=== PATIENT | female | born 1960 | race Caucasian/White ===

== ENCOUNTER → 2019-12-08 10:23 | Outpatient (CLI) | payer OTHER, SELFPAY ==
--- NOTE | ~2019-12-08 | MM_ITS ---
EXAMINATION: MM scrn christopher implant BI w nelia HISTORY: Screening mammogram TECHNIQUE: Craniocaudal and mediolateral oblique 3-D tomosynthesis images with implant displacement a nd synthetic 2-D images were generated. Craniocaudal and mediolateral oblique views of the breasts wi thout implant displacement were obtained using full field digital mammography. CAD analysis was submi tted and interpreted. COMPARISON: 09/16/2018, 09/03/2017, 07/26/2016 BREAST PARENCHYMAL COMPOSITION: The breasts are heterogeneously dense, which may obscure small masses . FINDINGS: There is no evidence of suspicious mass, calcification, or architectural distortion to sugg est malignancy in either breast. There has been no suspicious interval change. IMPRESSION: 1. No mammographic evidence of malignancy. 2. Recommend routine screening mammography in one year. BI-RADS Category 1: Negative Reviewed, dictated and finalized at location A. CAL LAB SPECIALIST
== END ==
PROVIDERS: PCP Family Medicine; Visit Provider Obstetrics & Gynecology
DX: Z12.31 Encounter for screening mammogram for malignant neoplasm of breast (principal)
CPT/HCPCS: 77063; 77067

== ENCOUNTER 2021-09-15 09:24 | Outpatient (CLI) | payer OTHER, SELFPAY ==
--- NOTE | ~2021-09-15 | US_ITS ---
EXAMINATION: US aorta DATE: 09/15/2021 09:54 CLIENT SUPPORT COORDINATOR INDICATION: Family history of abdominal aortic aneurysm TECHNIQUE: Grayscale, color Doppler, and pulsed Doppler images of the aorta and common iliac arteries were obtained. COMPARISON: None. FINDINGS: The proximal aorta measures 2.2 cm greatest sagittal dimension. The mid aorta measures 1.8 cm greates t sagittal dimension. The distal aorta measures 1.6 cm greatest sagittal dimension. The right common internal iliac artery measures 8 mm. The left common iliac artery measures 8 mm. IMPRESSION: 1. Mild atherosclerosis. No evidence for aneurysm. Reviewed, dictated and finalized at location A. NT SUPPORT COORDINATOR
== END 2021-09-15 09:25 | disposition home or self-care (01) ==
LOC: ANHIMG 09:26
PROVIDERS: PCP Family Medicine; Visit Provider Physician Assistant
DX: I70.0 Atherosclerosis of aorta (principal); Z82.49 Family history of ischemic heart disease and other diseases of the circulatory system
CPT/HCPCS: 76775

== ENCOUNTER → 2021-12-01 11:21 | Outpatient (CLI) | payer OTHER, SELFPAY ==
--- NOTE | ~2021-12-01 | MM_ITS ---
EXAMINATION: MM scrn christopher implant BI w nelia HISTORY: Screening mammogram TECHNIQUE: Craniocaudal and mediolateral oblique 3-D tomosynthesis images with implant displacement a nd synthetic 2-D images were generated. Craniocaudal and mediolateral oblique views of the breasts wi thout implant displacement were obtained using full field digital mammography. CAD analysis was submi tted and interpreted. COMPARISON: 12/08/2019, 09/16/2018, 08/26/2017 BREAST PARENCHYMAL COMPOSITION: The breasts are heterogeneously dense, which may obscure small masses . FINDINGS: There is no evidence of suspicious mass, calcification, or architectural distortion to sugg est malignancy in either breast. There has been no suspicious interval change. IMPRESSION: 1. No mammographic evidence of malignancy. 2. Recommend routine screening mammography in one year. BI-RADS Category 1: Negative Reviewed, dictated and finalized at location A. 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
== END ==
PROVIDERS: Visit Provider Obstetrics & Gynecology
DX: Z12.31 Encounter for screening mammogram for malignant neoplasm of breast (principal)
CPT/HCPCS: 77063; 77067

== ENCOUNTER → 2022-11-04 10:19 | Outpatient (CLI) | payer OTHER, SELFPAY ==
--- NOTE | ~2022-11-04 | DEXA_ITS ---
Bone Density Report Name: MARILIN GONZALEZ Age: 62 Sex: Female Ethnicity: White Date of : 1960 Indication: osteopenia; postmenopausal Referring Provider: Linda Fishman Study: Bone densitometry was performed. Exam Date: November 04, 2022 Accession number: [id number] Bone Density: Region BMD T-score Z-score Classification AP Spine (L1, L2, L3) 0.904 -1.0 0.6 Normal Femoral Neck (Left) 0.648 -1.8 -0.4 Osteopenia Total Hip (Left) 0.849 -0.8 0.4 Normal Femoral Neck (Right) 0.721 -1.1 0.3 Osteopenia Total Hip (Right) 0.848 -0.8 0.4 Normal Total Hip Mean 0.849 -0.8 0.4 Normal World Health Organization criteria for BMD impression classify patients as: Normal (T-score at or above -1.0), Osteopenia (T-score between -1.0 and -2.5), or Osteoporosis (T-score at or below -2.5). 10-year Fracture Risk(1): Major Osteoporotic Fracture 8.7% Hip Fracture 1.2% Reported Risk Factors: [place] (), Neck BMD=0.648, BMI=20.6 (1) FRAX(R) Version 3.08. Fracture probability calculated for an untreated patient. Fracture probability may be lower if the patient has received treatment. Previous Exams: Region Exam Age BMD T-score BMD Change BMD Change Date g/cm2 vs Baseline vs Previous AP Spine(L1, L2, L3) 11/04/2022 62 0.904 -1.0 0.046* 0.044* 04/04/2013 52 0.861 -1.4 0.002 0.007 02/05/2011 50 0.853 -1.5 -0.005 -0.005 12/24/2008 48 0.859 -1.4 Total Hip(Left) 11/04/2022 62 0.849 -0.8 -0.031* 0.004 04/04/2013 52 0.845 -0.8 -0.035* -0.019 02/05/2011 50 0.864 -0.6 -0.016 -0.016 12/24/2008 48 0.880 -0.5 Total Hip(Right) 11/04/2022 62 0.848 -0.8 -0.011 -0.047* 04/04/2013 52 0.895 -0.4 0.036* 0.034* 02/05/2011 50 0.861 -0.7 0.002 0.002 12/24/2008 48 0.859 -0.7 *Denotes significance at 95% confidence level, LSC for AP Spine = 0.022 g/cm2, LSC for Total Hip = 0.027 g/cm2 Clinical Information Provided by Patient: Has used the following medications: HRT (i.e. estrogen/hormone therapy), Vitamin D, Calcium Patient maximum height was 64.5 Menopause Age: 42 Drinks caffeinated beverages Onset of menses at age 12 Number of children 2 Impression: The patient has low bone mass, based on the Left Femoral Neck T-score. The patient has an est
== END ==
PROVIDERS: PCP Physician Assistant; Visit Provider Physician Assistant
DX: Z78.0 Asymptomatic menopausal state (principal); M85.89 Other specified disorders of bone density and structure, multiple sites
CPT/HCPCS: 77080

== ENCOUNTER 2023-06-02 13:29 | Outpatient (CLI) | payer OTHER, SELFPAY ==
--- NOTE | ~2023-06-02 | MM_ITS ---
EXAMINATION: MM scrn christopher implant BI w nelia HISTORY: Screening mammogram TECHNIQUE: Craniocaudal and mediolateral oblique 3-D tomosynthesis images with implant displacement a nd synthetic 2-D images were generated. Craniocaudal and mediolateral oblique views of the breasts wi thout implant displacement were obtained using full field digital mammography. CAD analysis was submi tted and interpreted. COMPARISON: 12/01/2021, 12/08/2019, 09/16/2018, 07/26/2016 BREAST PARENCHYMAL COMPOSITION: There are scattered areas of fibroglandular density. FINDINGS: There is no evidence of suspicious mass, calcification, or architectural distortion to sugg est malignancy in either breast. There has been no suspicious interval change. IMPRESSION: 1. No mammographic evidence of malignancy. 2. Recommend routine screening mammography in one year. BI-RADS Category 1: Negative Reviewed, dictated and finalized at location A.
== END 2023-06-02 13:30 | disposition home or self-care (01) ==
PROVIDERS: PCP Family Medicine; Visit Provider Obstetrics & Gynecology
DX: Z12.31 Encounter for screening mammogram for malignant neoplasm of breast (principal)
CPT/HCPCS: 77063; 77067

== ENCOUNTER 2024-06-04 10:36 | Outpatient (CLI) | payer MEDICARE, SELFPAY ==
--- NOTE | ~2024-06-04 | MM_ITS ---
EXAMINATION: MM scrn christopher implant BI w nelia HISTORY: Screening mammogram TECHNIQUE: Craniocaudal and mediolateral oblique 3-D tomosynthesis images with implant displacement a nd synthetic 2-D images were generated. Craniocaudal and mediolateral oblique views of the breasts wi thout implant displacement were obtained using full field digital mammography. CAD analysis was submi tted and interpreted. COMPARISON: Comparison to multiple prior studies sequentially, with oldest reviewed study dated 07/26. BREAST PARENCHYMAL COMPOSITION: Not dense: There are scattered areas of fibroglandular density. FINDINGS: There is no evidence of suspicious mass, calcification, or architectural distortion to sugg est malignancy in either breast. There has been no suspicious interval change. IMPRESSION: 1. No mammographic evidence of malignancy. 2. Recommend routine screening mammography in one year. BI-RADS Category 1: Negative Reviewed, dictated and finalized at location B.
== END 2024-06-04 10:37 | disposition home or self-care (01) ==
LOC: ANHIMG 10:38
PROVIDERS: PCP Family Medicine; Visit Provider Obstetrics & Gynecology
DX: Z12.31 Encounter for screening mammogram for malignant neoplasm of breast (principal)
CPT/HCPCS: 77063; 77067

== ENCOUNTER 2025-06-03 13:19 | Outpatient (CLI) | payer MEDICARE, SELFPAY ==
--- NOTE | ~2025-06-03 | DEXA_ITS ---
Bone Density Report Name: MARILIN GONZALEZ Age: 64 Sex: Female Ethnicity: White Date of : 1960 Indication: postmenopausal; screening for osteoporosis; Referring Provider: NELLIE CALI Study: Bone densitometry was performed. Exam Date: June 03, 2025 Accession number: [id number] Bone Density: Region BMD T-score Z-score Classification AP Spine(L1, L2, L3) 0.975 -0.4 1.4 Normal Femoral Neck (Left) 0.617 -2.1 -0.5 Osteopenia Total Hip (Left) 0.831 -0.9 0.4 Normal Femoral Neck (Right) 0.689 -1.4 0.2 Osteopenia Total Hip (Right) 0.913 -0.2 1.1 Normal Total Hip Mean 0.872 -0.6 0.8 Normal World Health Organization criteria for BMD impression classify patients as: Normal (T-score at or above -1.0), Osteopenia (T-score between -1.0 and -2.5), or Osteoporosis (T-score at or below -2.5). 10-year Fracture Risk(1): Major Osteoporotic Fracture 10.0% Hip Fracture 1.7% Reported Risk Factors: [place] (), Neck BMD=0.617, BMI=20.5 (1) FRAX(R) Version 3.08. Fracture probability calculated for an untreated patient. Fracture probability may be lower if the patient has received treatment. Previous Exams: Region Exam Age BMD T-score BMD Change BMD Change Date g/cm2 vs Baseline vs Previous AP Spine (L1-L3) 06/03/2025 64 0.975 -0.4 0.069 (7.7%)* 0.071 (7.8%)# 11/04/2022 62 0.904 -1.0 -0.001 (-0.1%) -0.001 (-0.1%) 09/03/2017 56 0.906 -1.0 Total Hip(Left) 06/03/2025 64 0.831 -0.9 0.021 (2.6%) -0.018 (-2.2%) 11/04/2022 62 0.849 -0.8 0.039 (4.8%)# 0.039 (4.8%)# 09/03/2017 56 0.810 -1.1 Total Hip(Right) 06/03/2025 64 0.913 -0.2 0.063 (7.4%)* 0.065 (7.7%)# 11/04/2022 62 0.848 -0.8 -0.002 (-0.2%) -0.002 (-0.2%) 09/03/2017 56 0.850 -0.8 *Denotes significance at 95% confidence level, LSC for AP Spine = 0.022 g/cm2, LSC for Total Hip = 0.027 g/cm2 # Denotes dissimilar scan types or analysis methods Clinical Information Provided by Patient: Has used the following medications: Actonel (i.e. risedronate), HRT (i.e. estrogen/hormone therapy), Vitamin D Patient maximum height was 64 Menopause Age: 42 Does not regularly consume dairy products Onset of menses at age 12 Number of children 2 Missed period for more than 6 months in a row Impression: The patient has low bone mass, based on the Left Femoral Neck T-score. The patient has an estimated ten-year risk of hip fracture of 1.7% and an estimated ten-year risk of major fracture of 10%, based on the WHO FRAX algorithm. No significant bone loss was observed. Discussion: BONE DENSITY IS LOW AT ONE OR MORE SKELETAL SITES. This patient's lowest T-score is low at one or more skeletal sites. It meets the World Health Organization's (WHO) criteria for ?low bone mass? (T-score between -1.0 and -2.5). The patient's 10-year risk of fracture as calculated by FRAX is less than the threshold where pharmacological therapy is recommended by the National Osteoporosis Foundation (NOF). However, all treatment decisions require clinical judgment and consideration of individual patient factors, including patient preferences, comorbidities, previous drug use, risk factors not captured in the FRAX model (e.g., frailty, falls, vitamin D deficiency, increased bone turnover, interval significant decline in bone density) and possible under or overestimation of fracture risk by FRAX. The patient should follow a healthful lifestyle (good nutrition with adequate calcium and vitamin D, and appropriate weight-bearing exercise). Follow-Up: Consider repeating this study in 2 to 3 years to reassess this patient's status, or sooner if there is some new clinical indication. Reported by: ROSENDA on 06/03/2025 2:16:00 PM. Reviewed, dictated and finalized at location A.
== END 2025-06-03 13:20 | disposition home or self-care (01) ==
LOC: ANHIMG 13:20
PROVIDERS: PCP Family Medicine; Visit Provider Student in an Organized Health Care Education/Training Program
DX: N95.9 Unspecified menopausal and perimenopausal disorder (principal); M85.852 Other specified disorders of bone density and structure, left thigh; M85.851 Other specified disorders of bone density and structure, right thigh
CPT/HCPCS: 77080

== ENCOUNTER 2025-06-07 13:42 | Outpatient (CLI) | payer MEDICARE, SELFPAY ==
--- NOTE | ~2025-06-07 | MM_ITS ---
EXAMINATION: MM scrn christopher implant BI w nelia HISTORY: Screening mammogram TECHNIQUE: Craniocaudal and mediolateral oblique 3-D tomosynthesis images with implant displacement a nd synthetic 2-D images were generated. Craniocaudal and mediolateral oblique views of the breasts wi thout implant displacement were obtained using full field digital mammography. CAD analysis was submi tted and interpreted. COMPARISON: Comparison to multiple prior studies sequentially, with oldest reviewed study dated 08/08. BREAST PARENCHYMAL COMPOSITION: Dense: The breasts are heterogeneously dense, which may obscure small masses FINDINGS: There is no evidence of suspicious mass, calcification, or architectural distortion to sugg est malignancy in either breast. There has been no suspicious interval change. IMPRESSION: 1. No mammographic evidence of malignancy. 2. Recommend routine screening mammography in one year. BI-RADS Category 1: Negative Reviewed, dictated and finalized at location B.
== END 2025-06-07 13:43 | disposition home or self-care (01) ==
LOC: ANHIMG 13:44
PROVIDERS: PCP Family Medicine; Visit Provider Obstetrics & Gynecology
DX: Z12.31 Encounter for screening mammogram for malignant neoplasm of breast (principal)
CPT/HCPCS: 77063; 77067